=== PATIENT | male | born 1955 | race Caucasian/White ===

== ENCOUNTER 2020-02-15 07:58 | Day surgery (SDC) | payer MEDICARE ==
[~2020-02-15] VITALS: Ht 195.6 cm; Wt 117.5 kg
[2020-02-15] VITALS (13 sets, daily range): BP systolic 114–132; BP diastolic 56–88
[~2020-02-15 07:58] MED LIST: FLO0.4C PO; NAPR-1154 PO
[2020-02-15] MEDS ORDERED: normal saline 1,000 ML IV SCH (08:30)
[2020-02-15] MEDS ORDERED: dextrose 50%-water 50ml dispensing syringe IV PRN ×2 (08:35)
[2020-02-15] MEDS ORDERED: methylPREDNISolone sod succ 125mg/2ml vial IV ONE (08:35)
[2020-02-15] MEDS ORDERED: dextrose ORAL solution 15 GM/59 ML bottle PO PRN ×2 (08:35)
[2020-02-15] MEDS ORDERED: insulin Lispro (HumaLOG) vial - multi-dose SQ SCH (08:35)
[2020-02-15] MEDS ORDERED: glucagon, human recombinant 1mg kit SUBCUT PRN (08:35)
[2020-02-15] MEDS ORDERED: MESSAGE TO PHARMACY PO ONE (08:35)
[2020-02-15 09:20] LABS: BASOPHILS % (AUTO) 0.3 % (0-1); EOSINOPHILS % (AUTO) 0.3 % (0-6); HEMATOCRIT 47.9 % (42.0-52.0); HEMOGLOBIN 15.9 g/dl (14.0-17.9); LYMPHOCYTES # (AUTO) 0.9 X10'3 (1.1-4.8); LYMPHOCYTES % (AUTO) 11.2 % (21-51); MEAN CORPUSCULAR HGB CONC 33.3 g/dL (33.0-36.5); MEAN CORPUSCULAR VOLUME 93.2 FL (78-98); MEAN PLATELET VOLUME 8.4 FL (7.4-10.4); MONOCYTES # (AUTO) 0.3 X10'3 (0-0.9); MONOCYTES % (AUTO) 3.2 % (2-12); NEUTROPHILS # (AUTO) 6.7 X10'3 (1.8-7.7); PLATELET COUNT 207 X10'3 (140-440); RED BLOOD COUNT 5.14 X10'6 (4.70-6.10); RED CELL DISTRIBUTION WIDTH 13.9 % (11.5-14.5); WHITE BLOOD COUNT 7.9 X10'3 (4.5-11.0)
[2020-02-15] MEDS ORDERED: JARDIANCE PO (09:28)
[2020-02-15] MEDS ORDERED: AMLO2.5T2 PO (09:28)
[2020-02-15] MEDS ORDERED: ATOR40TA PO (09:28)
[2020-02-15] MEDS ORDERED: LOSA25TA96 PO (09:28)
[2020-02-15] MEDS ORDERED: LEVO125T PO (09:28)
[2020-02-15] MEDS ORDERED: METF500T PO ×2 (09:28)
[2020-02-15] MEDS ORDERED: ASPI81TA52 PO (09:28)
[2020-02-15 09:34] LABS: PARTIAL THROMBOPLASTIN TIME 29 SECONDS (22-32)
[2020-02-15 09:39] LABS: ALBUMIN 3.8 G/DL (3.4-5.0); ANION GAP 9 (8-16); BLOOD UREA NITROGEN 21 MG/DL (7-18); BUN/CREATININE RATIO 20.8 (5.4-32.0); CALCIUM 8.9 MG/DL (8.5-10.1); CHLORIDE 106 MMOL/L (99-107); CREATININE 1.01 MG/DL (0.60-1.10); GLUCOSE 191 MG/DL (70-104); POTASSIUM 4.1 MMOL/L (3.5-5.1); SODIUM 141 MMOL/L (135-145); TOTAL CARBON DIOXIDE 26.4 MMOL/L (24-32); TROPONIN I < 0.04 NG/ML (0.0-0.05); eGFR 74 ML/MIN
[2020-02-15] MEDS ORDERED: midazolam 2 mg/2 ml injection ONE ×2 (10:38→11:06)
[2020-02-15] MEDS ORDERED: iohexol 350 MG/ML 50ML vial IV ONE (10:39)
[2020-02-15] MEDS ORDERED: fentaNYL/PF 50MCG/1 ML 2ML syringe ONE ×2 (10:39→11:21)
[2020-02-15] MEDS ORDERED: LIDOcaine 1% (10mg/ml)w/preservative injection 20ml MDV ONE (10:39)
[2020-02-15] MEDS ORDERED: iohexol 350MG/ML 100ml bottle IV ONE (10:39)
[2020-02-15] MEDS ORDERED: proCHLORperazine 10 MG/2 ml inj IV PRN (12:50)
[2020-02-15] MEDS ORDERED: OXAZEpam 15mg capsule PO PRN (12:50)
[2020-02-15] MEDS ORDERED: HYDROcodone/acetaminophen 5mg/325mg tablet PO PRN (12:50)
[2020-02-15] MEDS ORDERED: nitroGLYCERIN 0.4mg SUBLingual tab SL PRN (12:50)
[2020-02-15] MEDS ORDERED: HYDROcodone/acetaminophen 10/325mg tab PO PRN (12:50)
[2020-02-15] MEDS ORDERED: ondansetron/PF 4mg/2ml inj IV PRN (12:50)
--- NOTE | 2020-02-15 17:40 | NUR ---
Pt ambulated porter w/out incident-returned to room w/Rt groin site CDI-went into RR to void and began dressing-rt groin site began bleeding zandra red blood-pt placed supine and firm pressure applied to site [id number] achieved-surrounding area cleaned w/sterile 4x4 and NS-sterile 4x4 and tegaderm applied to site w/additional 4x4 and foam tape pressure dressing- 182-Pt ambulated hallway again w/out incident -Rt groin site CDI-Pt dressed w/RN assist and D/C from unit
[2020-02-15 19:01] LABS: HEMOGLOBIN A1C 6.6 % (4.5-6.2)
[2020-02-15] MEDS ORDERED: metoprolol tartrate 25mg tablet PO SCH (20:00)
[2020-02-15] MEDS ORDERED: insulin glargine (Lantus) pen - multi-dose SQ SCH (21:00)
== END 2020-02-15 18:40 | disposition home or self-care (01) ==
LOC: SSTAY O 07:58
PROVIDERS: ATTEND Internal Medicine Cardiovascular Disease
DX: R94.39 Abnormal result of other cardiovascular function study (principal); I25.119 Atherosclerotic heart disease of native coronary artery with unspecified angina pectoris; I10 Essential (primary) hypertension; E78.5 Hyperlipidemia, unspecified; E03.9 Hypothyroidism, unspecified; E11.9 Type 2 diabetes mellitus without complications; I47.1 Supraventricular tachycardia; E66.9 Obesity, unspecified; Z68.30 Body mass index [BMI] 30.0-30.9, adult; Z72.89 Other problems related to lifestyle; Z79.01 Long term (current) use of anticoagulants; Z79.899 Other long term (current) drug therapy
CPT/HCPCS: 36415; 71046; 80048; 82948; 83036; 84484; 85025; 85610; 85730; 93005; 93458; 99152; 99153; C1769; J1644; J1815; J2001; J2250; J2930; J3010; J7030; Q9967; A4620; A6258; C1760